=== PATIENT | female | born 1995 | race Caucasian/White ===

== ENCOUNTER 2018-12-10 00:35 | Inpatient (IN) | payer OTHER ==
[~2018-12-10] VITALS: Ht 154.9 cm; Wt 2.3 kg
[2018-12-10] MEDS ORDERED: PRENATAL TABLE1 EAC1 PO (02:02)
== END 2018-12-12 13:15 | disposition home or self-care (01) | DRG 788 ==
LOC: LDR 00:35 → OB/GYN 00:35
PROVIDERS: ADMIT Obstetrics & Gynecology
PROC: 4A0HXFZ Measurement of Products of Conception, Cardiac Rhythm, External Approach (ICD-10-PCS; 2018-12-10)
PROC: 10D00Z1 Extraction of Products of Conception, Low, Open Approach (ICD-10-PCS; principal; 2018-12-10 02:30)
DX: O82 Encounter for cesarean delivery without indication (principal); Z3A.38 38 weeks gestation of pregnancy; Z37.0 Single live birth